=== PATIENT | male | born 2005 | race Hispanic/Latino ===

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

== ENCOUNTER 2024-02-22 15:29 | Emergency (ER) | payer OTHER, SELFPAY ==
[2024-02-22] MEDS ORDERED: Ibuprofen 200 MG TAB ONE (17:14)
[2024-02-22] MEDS ORDERED: Boostrix 0.5 ML (Tdap) VIAL (>/=7 yrs of age) ONE (17:15)
== END 2024-02-22 17:32 | disposition home or self-care (01) ==
LOC: BURERS 15:29
DX: S91.332A Puncture wound without foreign body, left foot, initial encounter (principal); Z23 Encounter for immunization; X58.XXXA Exposure to other specified factors, initial encounter
CPT/HCPCS: 90715; 99283